=== PATIENT | male | born 1965 | race Caucasian/White ===

== ENCOUNTER → 2016-10-22 10:41 | Outpatient (CLI) | payer BC ==
[2014-05-13 15:00] VITALS: BMI 55.6
[~2016-10-22 10:41] MED LIST: ACETAMINOPHEN500 M1 PO; ADIPEX-P37.5 MG PO; ASPIRIN325 MG PO; COREG6.25 MG PO; GLUCOPHAGE500 MG PO; LASIX40 MG PO; MUCINEX600 MG PO; PREDNISONE5 MG PO; RESTORIL15 MG PO; ZESTRIL10 MG PO
== END | disposition home or self-care (01) ==
LOC: D.US 10:41
DX: E11.9 Type 2 diabetes mellitus without complications (principal)